=== PATIENT | female | born 1955 | race Caucasian/White ===

== ENCOUNTER 2018-04-01 10:12 | Emergency (ER) | payer BC ==
[~2018-04-01] VITALS: Ht 162.6 cm; Wt 61.2 kg
[2018-04-01 10:19] VITALS: BP_SYST 132
--- NOTE | 2018-04-01 10:23 | NUR ---
Patient to ER bed 06 to gown for evaluation. Side rails up.
[2018-04-01 10:45] VITALS: BP_SYST 120
--- NOTE | 2018-04-01 10:50 | NUR ---
Patient to ER bed 05 to gown for evaluation. Side rails up.
--- NOTE | 2018-04-01 10:52 | NUR ---
ER Dr. Glasgow at bedside examining patient.
--- NOTE | 2018-04-01 10:53 | NUR ---
Pt presents to te ED for R wrist pain s/p mech fall this morning. Pt states that she was gardening when she tripped backwards on a sprinkler and landed on her buttocls but also fell on R wrist. Pt denies head trauma or KO. Pt c/o R wrist tenderness but denies decreased sensation or weakness or paralysis of her right hand. Pt denies fever, chills, nausea, vomiting, back pain, neck pain, elbow pain, or other recent traumas or injuries.
--- NOTE | 2018-04-01 10:55 | NUR ---
Radiology at bedside.
[2018-04-01 11:20] VITALS: BP_SYST 120
--- NOTE | 2018-04-01 11:20 | NUR ---
Patient given written and verbal discharge instructions and verbalizes understanding. ER MD discussed with patient the results and treatment provided. Patient in stable condition. ID arm band removed. Rx of [place] given. Patient educated on pain management and to follow up with PMD. Pain Scale 3/10. Opportunity for questions provided and answered. Medication side effect fact sheet provided.
== END 2018-04-01 11:20 | disposition home or self-care (01) ==
LOC: SED 10:12
DX: S52.591A Other fractures of lower end of right radius, initial encounter for closed fracture (principal); M19.90 Unspecified osteoarthritis, unspecified site; R03.0 Elevated blood-pressure reading, without diagnosis of hypertension; Z90.49 Acquired absence of other specified parts of digestive tract; W01.0XXA Fall on same level from slipping, tripping and stumbling without subsequent striking against object, initial encounter; Y93.89 Activity, other specified; Y92.89 Other specified places as the place of occurrence of the external cause; Y99.8 Other external cause status
CPT/HCPCS: 99283